=== PATIENT | female | born 1990 | race Caucasian/White ===

== ENCOUNTER 2023-03-31 21:00 | Emergency (ER) | payer OTHER ==
[2023-03-31 21:08] VITALS: BP 120/81; PULSE 72; RESP 18; TEMP 98.6; BMI 28.3
[2023-03-31] MEDS ORDERED: NAPROXEN 500 MG TABLET PO ONE (21:23)
[2023-03-31] MEDS ORDERED: NAPROXEN 500 MG TABLET ONE (21:26)
== END 2023-03-31 21:39 | disposition home or self-care (01) ==
LOC: FER 21:00
DX: S16.1XXA Strain of muscle, fascia and tendon at neck level, initial encounter (principal); R51.9 Headache, unspecified; M54.2 Cervicalgia; M25.519 Pain in unspecified shoulder; V43.52XA Car driver injured in collision with other type car in traffic accident, initial encounter; Y93.I9 Activity, other involving external motion; Y92.009 Unspecified place in unspecified non-institutional (private) residence as the place of occurrence of the external cause
CPT/HCPCS: 99283-25